=== PATIENT | female | born 1965 | race Caucasian/White ===

== ENCOUNTER → 2016-11-24 | Outpatient (CLI) | payer OTHER | LOC: FIMAGING 11:32 | DX: Z12.31 Encounter for screening mammogram for malignant neoplasm of breast (principal) | CPT/HCPCS: G0202 ==

== ENCOUNTER → 2017-11-26 | Outpatient (CLI) | payer OTHER | LOC: FIMAGING 07:37 | DX: Z12.31 Encounter for screening mammogram for malignant neoplasm of breast (principal) ==